=== PATIENT | male | born 1980 | race Two or more races ===

== ENCOUNTER 2017-08-27 15:29 | Emergency (ER) | payer BC, MEDICAID ==
[~2017-08-27] VITALS: Ht 188 cm; Wt 104.0 kg
[~2017-08-27 15:29] MED LIST: ALBU18HF INH
[2017-08-27] MEDS ORDERED: ALBUTEROL/IPRATROPIUM 2.5MG/0.5MG, 3 ML ONE (16:18)
[2017-08-27] MEDS ORDERED: ALBUTEROL/IPRATROPIUM 2.5MG/0.5MG, 3 ML NPPB ONE (16:30)
[2017-08-27 16:49] LABS: HEMATOCRIT 51.6 % (39.2-51.8); HEMOGLOBIN 17.7 g/dL (13.7-18.0); WHITE BLOOD COUNT 14.1 x10^3/uL (3.4-10)
[2017-08-27 16:58] LABS: BLOOD UREA NITROGEN 11 mg/dL (7-18)
[2017-08-27 18:07] VITALS: BP 160/116
== END 2017-08-27 18:25 | disposition home or self-care (01) ==
LOC: ED 16:19
DX: J45.31 Mild persistent asthma with (acute) exacerbation (principal); I10 Essential (primary) hypertension
CPT/HCPCS: 36415; 71020; 80048; 82040; 85025; 93005; 94640; 99285; J7512; J7620

== ENCOUNTER 2017-10-24 15:48 | Emergency (ER) | payer BC ==
[~2017-10-24] VITALS: Ht 182.9 cm; Wt 106.5 kg
[2017-10-24 15:52] VITALS: BP 235/139
[2017-10-24] MEDS ORDERED: ALBUTEROL/IPRATROPIUM 2.5MG/0.5MG, 3 ML ONE (16:07)
[2017-10-24] MEDS ORDERED: ALBUTEROL/IPRATROPIUM 2.5MG/0.5MG, 3 ML NPPB SCH (16:30)
== END 2017-10-24 17:41 | disposition home or self-care (01) ==
LOC: ED 17:35
DX: J45.41 Moderate persistent asthma with (acute) exacerbation (principal); I10 Essential (primary) hypertension; F17.210 Nicotine dependence, cigarettes, uncomplicated
CPT/HCPCS: 71046; 93005; 94640; 99284; J7620

== ENCOUNTER 2018-05-25 21:42 | Emergency (ER) | payer BC ==
[~2018-05-25] VITALS: Ht 182.9 cm; Wt 115.0 kg
[2018-05-25] MEDS ORDERED: ALBUTEROL SULFATE 2.5 MG/3 ML NPPB ONE (22:30)
[2018-05-25] MEDS ORDERED: ALBUTEROL SULFATE 2.5 MG/3 ML ONE (22:42)
[2018-05-25] MEDS ORDERED: hydrALAzine 20 MG/ML, 1ML ONE (22:54)
[2018-05-25] MEDS ORDERED: hydrALAzine 20 MG/ML, 1ML IV ONE (23:00)
[2018-05-25 23:03] LABS: ALBUMIN 4.3 g/dL (3.4-5.0); ANION GAP 8 mmol/L (5-15); CALCIUM 8.5 mg/dL (8.5-10.1); CHLORIDE 107 mmol/L (98-107)
[2018-05-25 23:04] LABS: MEAN CORPUSCULAR HEMOGLOBIN 30.2 pg (27.5-34.5); MEAN CORPUSCULAR HGB CONC 34.4 g/dL (33.2-36.2); MEAN CORPUSCULAR VOLUME 87.7 fL (81-97); PLATELET COUNT 279 x10^3/uL (130-400); RED CELL DISTRIBUTION WIDTH 13.1 % (9.4-14.8)
[2018-05-25 23:05] LABS: MD YES
[2018-05-25 23:11] LABS: CREATININE 1.18 mg/dL (0.7-1.3); TROPONIN I 0.023 ng/mL (0.000-0.045)
[2018-05-25 23:38] LABS: EOS#(MANUAL) 1.01 x10^3/uL (0.0-0.4); EOS% (MANUAL) 12 % (1-7); LYMPH#(MANUAL) 2.18 x10^3/uL (1-3.4); LYMPHS% (MANUAL) 26 % (22-44); MONOS#(MANUAL) 0.42 x10^3/uL (0.3-2.7); MONOS% (MANUAL) 5 % (2-9); REACTIVE LYMPHS # (MANUAL) 0.25 x10^3/uL (0-0); REACTIVE LYMPHS % (MANUAL) 3 % (0-0); SEG#(MANUAL) 4.54 x10^3/uL (1.8-6.8); SEGS% (MANUAL) 54 % (42-75)
[2018-05-25 23:39] LABS: <PLATELET ESTIMATE> ADEQUATE; <PLT MORPHOLOGY> NORMAL PLT MORPH; <RBC MORPHOLOGY> NORMAL
[2018-05-25] MEDS ORDERED: KETOROLAC 30 MG/1 ML ONE (23:54)
[2018-05-25] MEDS ORDERED: PROCHLORPERAZINE 5 MG/ML, 2ML ONE (23:54)
[2018-05-26] VITALS: BP 159/97
[2018-05-26] MEDS ORDERED: KETOROLAC 30 MG/1 ML IVPush ONE
[2018-05-26] MEDS ORDERED: PROCHLORPERAZINE 5 MG/ML, 2ML IVPush ONE
== END 2018-05-26 00:59 | disposition home or self-care (01) ==
LOC: ED 05-26 00:22
DX: J45.31 Mild persistent asthma with (acute) exacerbation (principal); I10 Essential (primary) hypertension; F17.200 Nicotine dependence, unspecified, uncomplicated
CPT/HCPCS: 36415; 71045; 80048; 82040; 84484; 85025; 93005; 94640; 96374; 96375; 99285; J0360; J0780; J1885; J7512; J7613

== ENCOUNTER 2018-12-01 09:50 | Emergency (ER) | payer BC ==
[~2018-12-01] VITALS: Ht 188 cm; Wt 109.5 kg
--- NOTE | 2018-12-01 11:25 | NUR ---
CAREER TRANSITION SPECIALIST: PT TO ROOM FROM RASHI NEUMANN
[2018-12-01] MEDS ORDERED: LISI2.5T PO (11:41)
[2018-12-01] MEDS ORDERED: AMLO2.5T5 PO (11:41)
[2018-12-01] MEDS ORDERED: ALBU0.63 NEB (11:41)
--- NOTE | 2018-12-01 11:42 | NUR ---
WHEEZES AUSCULATED. AWAITING PROVIDER EVAL
--- NOTE | 2018-12-01 11:57 | NUR ---
SITTING ON EDGE OF GURNEY, AGITATED. REFUSING TX AND WANTS RT AT BEDSIDE.
[2018-12-01] MEDS ORDERED: ALBUTEROL/IPRATROPIUM 2.5MG/0.5MG, 3 ML ONE ×2 (12:00→14:09)
--- NOTE | 2018-12-01 12:01 | NUR ---
MD AWARE PT REFUSING ALL BUT BREATHING TX AT THIS TIME. WILL RE-EVALUATE AFTER TX GIVEN
[2018-12-01] MEDS ORDERED: methylPREDNISolone SOD SUCC 125 MG/2 ML ONE (12:30)
--- NOTE | 2018-12-01 12:36 | NUR ---
AFTER PT RECEIVED BREATHING TX, ALLOWED FOR IV START, LABS AND XRAY. MEDS GIVEN PER ORDERS. LUNGS LESS DIMINISHED
[2018-12-01 12:40] LABS: BASOPHILS # (AUTO) 0.02 x10^3/uL (0-0.1); BASOPHILS % (AUTO) 0 % (0-1); EOSINOPHILS # (AUTO) 0.69 x10^3/uL (0-0.4); EOSINOPHILS % (AUTO) 9 % (1-7); LYMPHOCYTES # (AUTO) 1.58 x10^3/uL (1-3.4); LYMPHOCYTES % (AUTO) 21 % (22-44); MD NO; MEAN CORPUSCULAR HEMOGLOBIN 29.9 pg (27.5-34.5); MEAN CORPUSCULAR HGB CONC 33.7 g/dL (33.2-36.2); MEAN CORPUSCULAR VOLUME 88.7 fL (81-97); MONOCYTES # (AUTO) 0.53 x10^3/uL (0.2-0.8); MONOCYTES % (AUTO) 7 % (2-9); NEUTROPHILS # (AUTO) 4.56 x10^3/uL (1.8-6.8); NEUTROPHILS % (AUTO) 62 % (42-75); PLATELET COUNT 326 x10^3/uL (130-400); RED BLOOD COUNT 5.89 x10^6/uL (4.38-5.82); RED CELL DISTRIBUTION WIDTH 12.3 % (9.4-14.8)
[2018-12-01 12:49] LABS: ALBUMIN 4.5 g/dL (3.4-5.0); ANION GAP 5 mmol/L (5-15); CALCIUM 8.9 mg/dL (8.5-10.1); CHLORIDE 107 mmol/L (98-107); CREATININE 1.18 mg/dL (0.7-1.3)
[2018-12-01] MEDS ORDERED: methylPREDNISolone SOD SUCC 125 MG/2 ML IVPush ONE (13:00)
[2018-12-01] MEDS ORDERED: MAGNESIUM SULFATE 1 GM/2 ML IVPush ONE (13:00)
[2018-12-01 14:33] VITALS: BP 182/134
--- NOTE | 2018-12-01 14:33 | NUR ---
AFTER SECOND BREATHING TX, PT GIVEN DISCHARGE WITH PRESCRIPTIONS. AMBULATED TO DISCHARGE WINDOW, BREATHING EVEN AND UNLABORED
== END 2018-12-01 15:13 | disposition home or self-care (01) ==
LOC: ED 12:11
DX: J45.41 Moderate persistent asthma with (acute) exacerbation (principal); J18.9 Pneumonia, unspecified organism
CPT/HCPCS: 36415; 71045; 80048; 82040; 85025; 93005; 94640; 96374; 96375; 99291; J2930; J3475

== ENCOUNTER 2018-12-25 06:07 | Emergency (ER) | payer BC ==
[~2018-12-25] VITALS: Ht 182.9 cm; Wt 109.0 kg
[~2018-12-25 06:07] MED LIST changes: +ALBU0.63 NEB; +AMLO2.5T5 PO; +LISI2.5T PO
[2018-12-25] MEDS ORDERED: ONDANSETRON 2MG/ML, 2ML IVPush ONE (06:30)
[2018-12-25] MEDS ORDERED: ALBUTEROL/IPRATROPIUM 2.5MG/0.5MG, 3 ML NPPB SCH (06:30)
[2018-12-25] MEDS ORDERED: SODIUM CHLORIDE FLUSH 10ML SYR IVF ONE (06:30)
[2018-12-25] MEDS ORDERED: MORPHINE SULFATE 4 MG/ML, 1ML IVPush PRN (06:30)
--- NOTE | 2018-12-25 06:37 | NUR ---
Pt presents for SOB increasing since yesterday. Pt states hx asthma. No relief with home inhaler. Pt also c/o pain to R/substernal chest. NSR on monitor, 97% 3L NC. Exp wheezes.
--- NOTE | 2018-12-25 06:55 | NUR ---
Report to Mikayla CONCEPCION.
--- NOTE | 2018-12-25 06:55 | NUR ---
received report from Lionel. pt upright on gurney awake & calm, responds approp to staff, NAD at rest, comfort measures provided, call light within reach.
[2018-12-25] MEDS ORDERED: ONDANSETRON 2MG/ML, 2ML ONE (06:56)
[2018-12-25] MEDS ORDERED: MORPHINE SULFATE 4 MG/ML, 1ML ONE (06:56)
[2018-12-25] MEDS ORDERED: ALBUTEROL/IPRATROPIUM 2.5MG/0.5MG, 3 ML ONE (07:02)
--- NOTE | 2018-12-25 07:06 | NUR ---
RT at BS
[2018-12-25 07:07] LABS: ALBUMIN 4.3 g/dL (3.4-5.0); ANION GAP 6 mmol/L (5-15); CALCIUM 8.8 mg/dL (8.5-10.1); CHLORIDE 108 mmol/L (98-107)
[2018-12-25 07:09] LABS: BASOPHILS # (AUTO) 0.05 x10^3/uL (0-0.1); BASOPHILS % (AUTO) 1 % (0-1); EOSINOPHILS # (AUTO) 0.76 x10^3/uL (0-0.4); EOSINOPHILS % (AUTO) 9 % (1-7); LYMPHOCYTES # (AUTO) 1.44 x10^3/uL (1-3.4); LYMPHOCYTES % (AUTO) 16 % (22-44); MD NO; MEAN CORPUSCULAR HEMOGLOBIN 29.5 pg (27.5-34.5); MEAN CORPUSCULAR HGB CONC 33.4 g/dL (33.2-36.2); MEAN CORPUSCULAR VOLUME 88.4 fL (81-97); MEAN PLATELET VOLUME 7.7 fL (7.4-10.4); MONOCYTES # (AUTO) 0.45 x10^3/uL (0.2-0.8); MONOCYTES % (AUTO) 5 % (2-9); NEUTROPHILS # (AUTO) 6.14 x10^3/uL (1.8-6.8); NEUTROPHILS % (AUTO) 70 % (42-75); PLATELET COUNT 326 x10^3/uL (130-400); RED CELL DISTRIBUTION WIDTH 12.6 % (9.4-14.8)
[2018-12-25 07:12] LABS: CREATININE 1.09 mg/dL (0.7-1.3); TROPONIN I < 0.015 ng/mL (0.000-0.045)
[2018-12-25] MEDS ORDERED: LISINOPRIL 20 MG TABLET ONE (07:48)
--- NOTE | 2018-12-25 07:51 | NUR ---
pt remain upright on gurney awake & calm, responds approp to staff, NAD at rest, comfort measures provided, call light within reach.
[2018-12-25 07:56] VITALS: BP 155/108
[2018-12-25] MEDS ORDERED: LISINOPRIL 20 MG TABLET PO ONE (08:00)
--- NOTE | 2018-12-25 08:12 | NUR ---
Patient given discharge instructions and Rx, they have confirmed that they understand the instructions. Patient ambulatory with steady gait.
== END 2018-12-25 08:14 | disposition home or self-care (01) ==
LOC: ED 07:40
DX: J45.31 Mild persistent asthma with (acute) exacerbation (principal); I10 Essential (primary) hypertension
CPT/HCPCS: 36415; 71045; 80048; 82040; 83880; 84484; 85025; 85379; 93005; 94640; 96374; 96375; 99284; J2405; J7512; J7620

== ENCOUNTER 2019-01-22 10:34 | Emergency (ER) | payer SELFPAY ==
--- NOTE | 2019-01-22 10:59 | NUR ---
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
--- NOTE | 2019-01-22 11:16 | NUR ---
NO ANSWER IN LOBBY.
--- NOTE | 2019-01-22 11:29 | NUR ---
NO ANSWER IN LOBBY, CHILDREN'S LOBBY OR LOBBY BATHROOM.
== END 2019-01-22 11:30 | disposition left against medical advice (07) ==
LOC: ED 11:24
DX: R06.00 Dyspnea, unspecified (principal); Z53.21 Procedure and treatment not carried out due to patient leaving prior to being seen by health care provider

== ENCOUNTER 2020-12-07 02:05 | Inpatient (IN) | payer MEDICAID ==
[~2020-12-07] VITALS: Ht 188 cm; Wt 118.3 kg
[2020-12-07] MEDS ORDERED: KETOROLAC 30 MG/1 ML ONE (02:29)
[2020-12-07] MEDS ORDERED: KETOROLAC 30 MG/1 ML IM ONE (02:30)
--- NOTE | 2020-12-07 02:38 | NUR ---
Pt states having flank pain and concerned for kidney stones. Pt medicated per order. Provider aware of BP and no new orders.
[2020-12-07 02:45] LABS: BASOPHILS % (AUTO) 1 % (0-1); EOSINOPHILS % (AUTO) 4 % (1-7); LYMPHOCYTES % (AUTO) 19 % (22-44); MEAN CORPUSCULAR HEMOGLOBIN 30.1 pg (27.5-34.5); MEAN CORPUSCULAR HGB CONC 34.6 g/dL (33.2-36.2); MEAN PLATELET VOLUME 7.4 fL (7.4-10.4); MONOCYTES % (AUTO) 7 % (2-9); NEUTROPHILS % (AUTO) 69 % (42-75); PLATELET COUNT 304 x10^3/uL (130-400); RED BLOOD COUNT 5.79 x10^6/uL (4.38-5.82); RED CELL DISTRIBUTION WIDTH 12.5 % (9.4-14.8)
[2020-12-07 02:47] LABS: MD NO
[2020-12-07 02:53] LABS: ALBUMIN 4.1 g/dL (3.4-5.0); ANION GAP 3 mmol/L (5-15); CALCIUM 9.1 mg/dL (8.5-10.1); CHLORIDE 106 mmol/L (98-107); CREATININE 1.18 mg/dL (0.7-1.3)
[2020-12-07 03:24] LABS: MICROSCOPIC AUTO
[2020-12-07] MEDS ORDERED: hydrALAzine 20 MG/ML, 1ML ONE ×3 (04:57→07:35)
[2020-12-07] MEDS ORDERED: CEFTRIAXONE PMX 1GM/50ML 50 ML ONE (04:57)
[2020-12-07] MEDS ORDERED: hydrALAzine 20 MG/ML, 1ML IV ONE (05:00)
[2020-12-07] MEDS ORDERED: CEFTRIAXONE PMX 1GM/50ML 50 ML IV ONE (05:00)
--- NOTE | 2020-12-07 05:20 | NUR ---
Pt medicated for BP and abx. Covid test sent to lab. Pt calm in room. No changes. Pt states pain has improved. Will continue to monitor. Waiting for OR.
[2020-12-07] MEDS ORDERED: LACTATED RINGERS 1,000 ML IV SCH (06:00)
[2020-12-07] MEDS ORDERED: LABETALOL 5MG/ML, 20ML IVPush PRN (06:00)
[2020-12-07] MEDS ORDERED: KETOROLAC 30 MG/1 ML IV PRN (06:00)
[2020-12-07] MEDS ORDERED: hydrALAzine 20 MG/ML, 1ML IVPush PRN (06:00)
[2020-12-07] MEDS ORDERED: ACETAMINOPHEN 325 MG TABLET PO PRN ×2 (06:00→08:30)
[2020-12-07] MEDS ORDERED: ONDANSETRON 2MG/ML, 2ML IVPush PRN ×2 (06:00→08:30)
[2020-12-07] MEDS ORDERED: CHLORHEXIDINE 15 ML UDC ONE (06:49)
--- NOTE | 2020-12-07 06:58 | NUR ---
Report given to the OR. Pt clothes removed and all belongings with in room. Pt A&O x 4. LR infusing per order. Pt to OR via transport.
[2020-12-07] MEDS ORDERED: CHLORHEXIDINE 15 ML UDC PO ONE (07:00)
[2020-12-07] MEDS ORDERED: EPINEPHRINE 1 MG/ML, 1ML ONE (07:19)
[2020-12-07] MEDS ORDERED: BUPIVACAINE/PF 0.5% ONE (07:19)
[2020-12-07] MEDS ORDERED: FENTANYL PF 250 MCG/5ML ONE (07:24)
[2020-12-07] MEDS ORDERED: MIDAZOLAM 1 MG/ML, 2ML ONE (07:24)
[2020-12-07] MEDS ORDERED: METOPROLOL 1 MG/ML, 5ML ONE ×2 (07:29→07:35)
[2020-12-07] MEDS ORDERED: CEFAZOLIN 1,000 MG ONE (07:35)
[2020-12-07] MEDS ORDERED: SUGAMMADEX 200 MG/2 ML IVPush ONE (07:35)
[2020-12-07] MEDS ORDERED: ONDANSETRON 2MG/ML, 2ML ONE (07:35)
[2020-12-07] MEDS ORDERED: ROCURONIUM 10 MG/ML,10ML ONE (07:35)
[2020-12-07] MEDS ORDERED: PROPOFOL 10 MG/ML, 20ML ONE (07:35)
[2020-12-07] MEDS ORDERED: DIAZEPAM 5 MG/ML, 2ML IVPush PRN (08:30)
[2020-12-07] MEDS ORDERED: METOPROLOL 1 MG/ML, 5ML IV PRN (08:30)
[2020-12-07] MEDS ORDERED: OXYcodone 5 MG/5 ML ORAL.SOL UDC PO PRN (08:30)
[2020-12-07] MEDS ORDERED: DIPHENHYDRAMINE 50 MG/ML, 1ML IVPush PRN (08:30)
[2020-12-07] MEDS ORDERED: PROMETHAZINE 25 MG/ML, 1ML IVPush PRN (08:30)
[2020-12-07] MEDS ORDERED: ALBUTEROL SULFATE 2.5 MG/3 ML NPPB PRN (08:30)
[2020-12-07] MEDS ORDERED: KETOROLAC 30 MG/1 ML IVPush PRN (08:30)
[2020-12-07] MEDS ORDERED: hydrALAzine 20 MG/ML, 1ML IV PRN (08:30)
[2020-12-07] MEDS ORDERED: MEPERIDINE/PF 25MG/0.5ML IVPush PRN (08:30)
[2020-12-07] MEDS ORDERED: LABETALOL 5MG/ML, 20ML IV PRN (08:30)
[2020-12-07] MEDS ORDERED: HYDROmorphone 1 MG/ML, 1ML INJ IVPush PRN (08:30)
[2020-12-07] MEDS ORDERED: OXYcodone 5 MG/5 ML ORAL.SOL UDC ONE (08:39)
[2020-12-07] MEDS ORDERED: FENTANYL PF 100 MCG/2ML ONE (08:39)
[2020-12-07] MEDS ORDERED: ACETAMINOPHEN 650 MG/20.3 ML UDC ONE (08:39)
[2020-12-07] MEDS: FENTANYL PF 100 MCG/2ML IV PRN ×2 (08:44→09:15)
[2020-12-07] MEDS ORDERED: ONDANSETRON 2MG/ML, 2ML IV PRN (11:30)
[2020-12-07] MEDS ORDERED: morphine SULFATE 10 MG/ML, 1ML IV PRN (11:30)
[2020-12-07 12:05] VITALS: BP 154/95
[2020-12-07] MEDS: POTASSIUM CHLORIDE 20 MEQ in LACTATED RINGERS 1,000 ML IV SCH ×2 (12:42→23:10)
[2020-12-07] MEDS: ENOXAPARIN 40 MG/0.4 ML SQ SCH (14:00)
[2020-12-07 20:06] VITALS: BP 112/73
[2020-12-07] MEDS: CEFOTETAN PMX 1GM/50ML 50 ML IVPB SCH (20:13)
[2020-12-07] MEDS: OXYcodone/APAP 5/325MG TABLET PO PRN (21:33)
[2020-12-08] MEDS: OXYcodone/APAP 5/325MG TABLET PO PRN ×3 (01:51→14:26)
[2020-12-08 01:55] VITALS: BP 128/82
[2020-12-08 05:05] LABS: BASOPHILS % (AUTO) 0 % (0-1); EOSINOPHILS % (AUTO) 0 % (1-7); LYMPHOCYTES % (AUTO) 11 % (22-44); MEAN CORPUSCULAR HEMOGLOBIN 29.8 pg (27.5-34.5); MEAN CORPUSCULAR HGB CONC 34.1 g/dL (33.2-36.2); MEAN PLATELET VOLUME 7.4 fL (7.4-10.4); MONOCYTES % (AUTO) 6 % (2-9); NEUTROPHILS % (AUTO) 83 % (42-75); PLATELET COUNT 310 x10^3/uL (130-400); RED CELL DISTRIBUTION WIDTH 12.4 % (9.4-14.8)
[2020-12-08 05:06] LABS: MD NO
[2020-12-08 05:16] LABS: ALBUMIN 3.5 g/dL (3.4-5.0); ANION GAP 6 mmol/L (5-15); CALCIUM 8.3 mg/dL (8.5-10.1); CHLORIDE 106 mmol/L (98-107)
[2020-12-08 05:19] LABS: ALANINE AMINOTRANSFERASE 15 U/L (12-78); ALKALINE PHOSPHATASE 51 U/L (45-117); BILIRUBIN,TOTAL 1.1 mg/dL (0.2-1.0); CREATININE 1.83 mg/dL (0.7-1.3); TOTAL PROTEIN 6.5 g/dL (6.4-8.2)
[2020-12-08 06:47] VITALS: BP 160/78
[2020-12-08] MEDS ORDERED: AMLODIPINE 2.5 MG TABLET PO SCH (09:00)
[2020-12-08] MEDS ORDERED: LISINOPRIL 5 MG TABLET PO SCH (09:00)
[2020-12-08] MEDS: CEFOTETAN PMX 1GM/50ML 50 ML IVPB SCH (09:39)
[2020-12-08] MEDS ORDERED: POTASSIUM CHLORIDE 20 MEQ in LACTATED RINGERS 1,000 ML IV SCH (11:30)
[2020-12-08] MEDS ORDERED: LISINOPRIL 5 MG TABLET PO ONE (13:00)
[2020-12-08 13:15] VITALS: BP 179/105
[2020-12-08] MEDS ORDERED: OXYC-302 PO ×3 (13:36→14:01)
[2020-12-08] MEDS ORDERED: LISI10TA19 PO (13:36)
[2020-12-08] MEDS: ENOXAPARIN 40 MG/0.4 ML SQ SCH (14:26)
== END 2020-12-08 16:40 | disposition home or self-care (01) | DRG 343 ==
LOC: ED 04:49 → EDIP 05:07 → 5SO 10:30 → DCLOUNGE 12-08 16:31
PROVIDERS: ADMIT Family Medicine; ATTEND Family Medicine
PROC: 0DTJ4ZZ Resection of Appendix, Percutaneous Endoscopic Approach (ICD-10-PCS; principal; 2020-12-07 06:30)
DX: K35.80 Unspecified acute appendicitis (principal); F17.200 Nicotine dependence, unspecified, uncomplicated; I10 Essential (primary) hypertension; I16.0 Hypertensive urgency; J45.909 Unspecified asthma, uncomplicated; Z79.899 Other long term (current) drug therapy; Z91.19 Patient's noncompliance with other medical treatment and regimen
CPT/HCPCS: 36415; 96374; 96375; 99285; S0020; 74176; 80048; 80053; 81001; 82040; 85025; 87635; 88304; 93005; G0378; J0171; J0690; J0696; J1650; J1885; J2250; J2405; J2704; J3010; J3480; J0360; J7120

== ENCOUNTER 2021-01-15 20:20 | Inpatient (IN) | payer MEDICAID ==
[~2021-01-15] VITALS: Ht 188 cm; Wt 106.7 kg
[~2021-01-15 20:20] MED LIST changes: +LISI10TA19 PO; +OXYC-302 PO
--- NOTE | 2021-01-15 20:50 | NUR ---
PT C/O RIGHT ARM AND LEG NUMBNESS AND DECREASED SENSATION STARTING YESTERDAY. MILD WEAKNESS TO RIGHT EXTREMITIES NOTED IN ASSESSMENT. PT STATES HE IS AMBULATORY, BUT LEANS TO RIGHT SIDE. PT DENIES TRAUMA. PT CONNECTED TO ALL MONITORING. CALL LIGHT IN REACH.
--- NOTE | 2021-01-15 20:59 | NUR ---
PIV PLACED, LABS DRAWN. PT CONNECTED TO ALL MONITORING. CALL LIGHT IN REACH. EKG COMPLETE.
[2021-01-15 21:36] LABS: BASOPHILS % (AUTO) 1 % (0-1); EOSINOPHILS % (AUTO) 4 % (1-7); LYMPHOCYTES % (AUTO) 22 % (22-44); MEAN CORPUSCULAR HEMOGLOBIN 30.4 pg (27.5-34.5); MEAN CORPUSCULAR HGB CONC 34.3 g/dL (33.2-36.2); MEAN PLATELET VOLUME 7.8 fL (7.4-10.4); MONOCYTES % (AUTO) 6 % (2-9); NEUTROPHILS % (AUTO) 68 % (42-75); PLATELET COUNT 331 x10^3/uL (130-400); RED BLOOD COUNT 5.78 x10^6/uL (4.38-5.82)
[2021-01-15 21:38] LABS: MD NO
[2021-01-15 21:45] LABS: ALANINE AMINOTRANSFERASE 31 U/L (12-78); ALBUMIN 4.2 g/dL (3.4-5.0); ANION GAP 6 mmol/L (5-15); CALCIUM 8.9 mg/dL (8.5-10.1); CHLORIDE 108 mmol/L (98-107); CREATININE 1.43 mg/dL (0.7-1.3)
[2021-01-15 21:49] LABS: ALKALINE PHOSPHATASE 61 U/L (45-117); BILIRUBIN,TOTAL 0.4 mg/dL (0.2-1.0); TOTAL PROTEIN 7.6 g/dL (6.4-8.2); TROPONIN I < 0.015 ng/mL (0.000-0.045)
--- NOTE | 2021-01-15 22:31 | NUR ---
PT BACK FROM CT.
--- NOTE | 2021-01-15 22:56 | NUR ---
REPORT GIVEN TO LIZETTE CONCEPCION.
[2021-01-16] MEDS ORDERED: LABETALOL 5MG/ML, 20ML IVPush ONE
[2021-01-16] MEDS ORDERED: ASPIRIN 81 MG TABLET CHEW PO ONE
[2021-01-16] MEDS ORDERED: NITROGLYCERIN OINT 2%, 1GM TP ONE ×2 (00:07)
[2021-01-16] MEDS ORDERED: LABETALOL 5MG/ML, 20ML ONE (00:07)
[2021-01-16] MEDS ORDERED: ASPIRIN 81 MG TABLET CHEW ONE (00:07)
[2021-01-16] MEDS ORDERED: POLYETHYLENE GLYCOL 17 GM PACKET PO PRN (01:30)
[2021-01-16] MEDS ORDERED: OXYcodone IR 5MG TABLET PO PRN (01:30)
[2021-01-16] MEDS ORDERED: PROMETHAZINE 25 MG/ML, 1ML IM PRN (01:30)
[2021-01-16] MEDS ORDERED: hydrALAzine 20 MG/ML, 1ML IVPush PRN (01:30)
[2021-01-16] MEDS ORDERED: ONDANSETRON 2MG/ML, 2ML IVPush PRN (01:30)
[2021-01-16] MEDS ORDERED: ACETAMINOPHEN 325 MG TABLET PO PRN (01:30)
[2021-01-16] MEDS ORDERED: ONDANSETRON ODT 4 MG PO PRN (01:30)
[2021-01-16] MEDS ORDERED: BISACODYL 10 MG SUPP PR PRN (01:30)
[2021-01-16] MEDS ORDERED: LABETALOL 5MG/ML, 20ML IVPush PRN (01:30)
[2021-01-16] MEDS ORDERED: DOCUSATE 100 MG CAPSULE PO PRN (01:30)
[2021-01-16 01:51] VITALS: BP 183/113
[2021-01-16] MEDS: ENOXAPARIN 40 MG/0.4 ML SQ SCH (02:23)
[2021-01-16 02:52] VITALS: BP 173/100
[2021-01-16] MEDS: ASPIRIN 325 MG TABLET EC PO SCH (05:31)
[2021-01-16 06:19] LABS: CHLORIDE 109 mmol/L (98-107)
[2021-01-16 06:26] LABS: BASOPHILS % (AUTO) 0 % (0-1); EOSINOPHILS % (AUTO) 5 % (1-7); LYMPHOCYTES % (AUTO) 27 % (22-44); MEAN CORPUSCULAR HEMOGLOBIN 29.8 pg (27.5-34.5); MEAN PLATELET VOLUME 7.3 fL (7.4-10.4); MONOCYTES % (AUTO) 7 % (2-9); NEUTROPHILS % (AUTO) 61 % (42-75); PLATELET COUNT 317 x10^3/uL (130-400); RED BLOOD COUNT 5.47 x10^6/uL (4.38-5.82); RED CELL DISTRIBUTION WIDTH 13.3 % (9.4-14.8)
[2021-01-16 06:28] LABS: MD NO
[2021-01-16 06:35] LABS: ALANINE AMINOTRANSFERASE 23 U/L (12-78); ALBUMIN 3.9 g/dL (3.4-5.0); ALKALINE PHOSPHATASE 51 U/L (45-117); ANION GAP 5 mmol/L (5-15); BILIRUBIN,TOTAL 0.7 mg/dL (0.2-1.0); CALCIUM 8.7 mg/dL (8.5-10.1); CHOLESTEROL, TOTAL 167 mg/dL (140-239); CREATININE 1.02 mg/dL (0.7-1.3); HDL CHOL % 14 % (26-37); HDL CHOLESTEROL (DIRECT) 24 mg/dL (40-60); TRIGLYCERIDES 198 mg/dL (50-200); VLDL CHOLESTEROL 40 mg/dL (0-25)
[2021-01-16 06:36] LABS: LDL CHOLESTEROL,CALCULATED 103 mg/dL (54-169); LDL/HDL RATIO 4.3 (0.5-3.0)
[2021-01-16 06:49] VITALS: BP 156/107
[2021-01-16] MEDS ORDERED: AMLODIPINE 10 MG TAB PO SCH (09:00)
[2021-01-16 14:41] VITALS: BP 162/107
[2021-01-16 19:04] VITALS: BP 203/88
[2021-01-16 19:45] VITALS: BP 176/120
[2021-01-16] MEDS: ATORVASTATIN 80 MG TABLET PO SCH (20:13)
[2021-01-17] VITALS (8 sets, daily range): BP systolic 157–217; BP diastolic 90–133
[2021-01-17] MEDS: ENOXAPARIN 40 MG/0.4 ML SQ SCH (00:47)
[2021-01-17 05:45] LABS: CHOL/HDL RATIO 6.1; LDL/HDL RATIO 4.1 (0.5-3.0)
[2021-01-17] MEDS: ASPIRIN 325 MG TABLET EC PO SCH (05:50)
[2021-01-17] MEDS ORDERED: ACETAMINOPHEN 325 MG TABLET PO PRN (10:30)
[2021-01-17] MEDS: HEPARIN 5,000 UNITS/ML, 1ML SQ SCH ×2 (11:25→19:41)
[2021-01-17] MEDS: ISOSORBIDE DINITRATE 10 MG TABLET PO SCH ×2 (17:53→21:19)
[2021-01-17] MEDS: ATORVASTATIN 80 MG TABLET PO SCH (21:18)
[2021-01-18] VITALS (8 sets, daily range): BP systolic 142–173; BP diastolic 73–114
[2021-01-18] MEDS: ASPIRIN 325 MG TABLET EC PO SCH (05:01)
[2021-01-18] MEDS: HEPARIN 5,000 UNITS/ML, 1ML SQ SCH ×3 (05:01→20:47)
[2021-01-18] MEDS ORDERED: ISOSORBIDE DINITRATE 10 MG TABLET ONE (08:21)
[2021-01-18] MEDS: ISOSORBIDE DINITRATE 20 MG TABLET PO SCH ×3 (08:30→20:47)
[2021-01-18] MEDS: ATORVASTATIN 80 MG TABLET PO SCH (20:47)
[2021-01-19 00:44] VITALS: BP 156/99
[2021-01-19 05:59] VITALS: BP 169/99
[2021-01-19] MEDS: ASPIRIN 325 MG TABLET EC PO SCH (06:04)
[2021-01-19] MEDS: HEPARIN 5,000 UNITS/ML, 1ML SQ SCH ×2 (06:05→11:30)
[2021-01-19 06:47] VITALS: BP 162/107
[2021-01-19] MEDS: ISOSORBIDE DINITRATE 20 MG TABLET PO SCH (08:59)
[2021-01-19 10:44] VITALS: BP 158/109
[2021-01-19] MEDS ORDERED: HYDR-3342 PO (10:57)
[2021-01-19] MEDS ORDERED: AMLO-150 PO (10:57)
[2021-01-19] MEDS ORDERED: ISOS20TA58 PO (10:57)
[2021-01-19] MEDS ORDERED: ATOR-2 PO (10:57)
[2021-01-19] MEDS ORDERED: ASPI-1026 PO (10:57)
[2021-01-19] MEDS ORDERED: AMLODIPINE 5 MG TABLET PO SCH (21:00)
[2021-01-19] MEDS ORDERED: LOSARTAN 25MG TABLET PO SCH (21:00)
== END 2021-01-19 12:10 | disposition home or self-care (01) | DRG 65 ==
LOC: ED 21:02 → EDIP 01-16 00:41 → 4EST 01-16 01:41 → DCLOUNGE 01-19 12:04
PROVIDERS: ADMIT Internal Medicine; ATTEND Internal Medicine
DX: I63.81 Other cerebral infarction due to occlusion or stenosis of small artery (principal); G81.91 Hemiplegia, unspecified affecting right dominant side; N17.9 Acute kidney failure, unspecified; I50.30 Unspecified diastolic (congestive) heart failure; I16.0 Hypertensive urgency; E66.9 Obesity, unspecified; F12.10 Cannabis abuse, uncomplicated; F17.210 Nicotine dependence, cigarettes, uncomplicated; G89.29 Other chronic pain; Z90.49 Acquired absence of other specified parts of digestive tract; Z68.30 Body mass index [BMI] 30.0-30.9, adult; Z79.82 Long term (current) use of aspirin; Z79.899 Other long term (current) drug therapy; I11.0 Hypertensive heart disease with heart failure
CPT/HCPCS: 36415; 70450; 70551; 71045; 80053; 80061; 83036; 83735; 84100; 84443; 84484; 85025; 93005; 93306; 93356; 93880; G0378; J1644; J1650; 92522-GN; J0360